=== PATIENT | male | born 1980 | race Caucasian/White ===

== ENCOUNTER → 2016-11-17 | Outpatient (REF) | payer OTHER | LOC: M SMT 10:45 | PROVIDERS: ATTEND Urology | DX: Z30.2 Encounter for sterilization (principal) ==

== ENCOUNTER → 2022-09-19 | Outpatient (CLI) | payer OTHER ==
[~2022-09-19] MED LIST: ATOR1TAB19 PO; OMEP40CA5 PO; PRIL20TA2 PO
== END ==
LOC: M LABSMTC 10:49
PROVIDERS: ATTEND Anesthesiology
DX: Z01.812 Encounter for preprocedural laboratory examination (principal); Z20.822 Contact with and (suspected) exposure to COVID-19

== ENCOUNTER 2022-09-23 09:34 | Day surgery (SDC) | payer OTHER ==
[~2022-09-23] VITALS: Ht 175.3 cm; Wt 85.3 kg
[~2022-09-23 09:34] MED LIST changes: +ceFAZolin SOD 2 GM in IV 1 EA IV ONE
[2022-09-23] MEDS ORDERED: LIDOCAINE 1% SDV 30ML VIAL As Ordered ONE (10:38)
[2022-09-23] MEDS ORDERED: BUPIVACAINE HCL 0.25% 30ML VIAL As Ordered ONE (10:38)
[2022-09-23] MEDS ORDERED: fentaNYL 100 MCG/2 ML INJECTION As Ordered ONE (10:54)
[2022-09-23] MEDS ORDERED: LR 1,000 ML IV SCH ×2 (10:55→15:00)
[2022-09-23] MEDS ORDERED: MIDAZOLAM INJ 2MG/2ML VIAL (J2250 PER 1MG) As Ordered ONE (10:55)
[2022-09-23] MEDS ORDERED: ACETAMINOPHEN 1000MG 100ML IV BAG As Ordered ONE (11:00)
[2022-09-23] MEDS ORDERED: propofoL 200 MG/20 ML VIAL As Ordered ONE ×2 (11:00→11:07)
[2022-09-23] MEDS ORDERED: dexameTHASONE 4 MG/ML 1ML VIAL (J1100 PER 1MG) As Ordered ONE (11:00)
[2022-09-23] MEDS ORDERED: LIDOCAINE 2% INJ 100 MG/5 ML SYRINGE As Ordered ONE (11:02)
[2022-09-23] MEDS ORDERED: ROCURONIUM BROMIDE 50 MG/5 ML VIAL As Ordered ONE ×3 (11:05→13:44)
[2022-09-23] MEDS ORDERED: KETOROLAC 60MG 2ML VIAL As Ordered ONE (11:08)
[2022-09-23] MEDS ORDERED: ONDANSETRON 4MG 2ML VIAL As Ordered ONE (11:08)
[2022-09-23] MEDS ORDERED: METHYLENE BLUE 0.5% (5MG/ML) 10 ML AMP (PROVAYBLUE) As Ordered ONE (11:16)
[2022-09-23] MEDS ORDERED: SUGAMMADEX SODIUM 500 MG/5 ML VIAL (BRIDION) As Ordered ONE (14:48)
[2022-09-23] MEDS ORDERED: fentaNYL 100 MCG/2 ML INJECTION IV PRN (15:00)
[2022-09-23] MEDS ORDERED: HYDROMORPHONE HCL 0.5 MG/ 0.5 ML SYRINGE (J1170 PER 1) IV PRN (15:00)
[2022-09-23] MEDS ORDERED: oxyCODONE 5MG TAB PO PRN (15:00)
[2022-09-23] MEDS ORDERED: CEPH500C PO (15:16)
[2022-09-23] MEDS ORDERED: HYDR-3713 PO (15:16)
[2022-09-23 16:25] VITALS: BP 128/86
== END 2022-09-23 16:55 | disposition home or self-care (01) ==
LOC: M SDC 09:34
PROVIDERS: ATTEND Urology
DX: N46.01 Organic azoospermia (principal); G47.33 Obstructive sleep apnea (adult) (pediatric); K21.9 Gastro-esophageal reflux disease without esophagitis; Z79.899 Other long term (current) drug therapy; Z87.891 Personal history of nicotine dependence
CPT/HCPCS: 55400; 88304; J0690; J1100; J1885; J2250; J2405; J3010

== ENCOUNTER 2023-10-23 12:30 | Emergency (ER) | payer OTHER ==
[~2023-10-23] VITALS: Ht 175.3 cm; Wt 95.5 kg
[~2023-10-23 12:30] MED LIST changes: +CEPH500C PO; +HYDR-3713 PO; -ceFAZolin SOD 2 GM in IV 1 EA IV ONE
[2023-10-23 13:06] LABS: BASO % 0.3 % (0.0-1.0); EOS % 0.1 % (0.0-3.0); HEMATOCRIT 46.6 % (42.0-52.0); HEMOGLOBIN 15.7 g/dl (13.5-17.5); LYMPH # 1.7 10^3/uL (1.5-5.0); LYMPH % 12.3 % (24.0-44.0); MEAN CORPUSCULAR HEMOGLOBIN 28.8 pg (27.0-33.0); MEAN CORPUSCULAR HGB CONC 33.7 g/dl (32.0-36.5); MEAN CORPUSCULAR VOLUME 85.3 fl (80.0-96.0); MONO # 0.9 10^3/uL (0.0-0.8); MONO % 6.3 % (2.0-8.0); NEUTROPHILS # 10.9 10^3/uL (1.5-8.5); NEUTROPHILS % 80.6 % (36.0-66.0); PLATELET COUNT, AUTOMATED 312 10^3/uL (150-450); RED BLOOD COUNT 5.46 10^6/uL (4.30-6.10); WHITE BLOOD COUNT 13.5 10^3/uL (4.0-10.0)
[2023-10-23 13:22] LABS: INR 1.2; PROTHROMBIN TIME 14.8 SECONDS (12.5-14.5)
[2023-10-23 13:23] LABS: PARTIAL THROMBOPLASTIN TIME 26.4 SECONDS (24.8-34.2)
[2023-10-23] MEDS ORDERED: ONDANSETRON 4MG 2ML VIAL IV ONE (13:45)
[2023-10-23 13:57] LABS: ETHYL ALCOHOL (ETHANOL) 0.075 % (0.000-0.010)
[2023-10-23 13:58] LABS: ALBUMIN 4.1 G/DL (3.2-5.2); BILIRUBIN,DIRECT 0.4 MG/DL (<0.4); BILIRUBIN,TOTAL 1.2 MG/DL (0.3-1.2); CK-MB VALUE MASS 21.3 NG/ML (<3.6); TOTAL PROTEIN 6.7 G/DL (5.7-8.2)
[2023-10-23] MEDS: MORPHINE 4 MG/ML 1ML VIAL IV PRN ×2 (14:16→15:26)
[2023-10-23 14:34] LABS: MB/CK RELATIVE INDEX 0.78 (< OR =4)
[2023-10-23 15:17] LABS: RSV AMPLIFICATION NEGATIVE (NEGATIVE)
[2023-10-23] MEDS ORDERED: MORPHINE 4 MG/ML 1ML VIAL IV ONE (18:25)
[2023-10-23 19:13] VITALS: BP 183/96; TEMP 97.8; O2SAT 98
== END 2023-10-23 19:14 | disposition short-term general hospital (02) ==
LOC: EDBD 12:30 → M ED 12:30
DX: S13.0XXA Traumatic rupture of cervical intervertebral disc, initial encounter (principal); S13.4XXA Sprain of ligaments of cervical spine, initial encounter; F10.10 Alcohol abuse, uncomplicated; K21.9 Gastro-esophageal reflux disease without esophagitis; Y04.0XXA Assault by unarmed brawl or fight, initial encounter; Y92.009 Unspecified place in unspecified non-institutional (private) residence as the place of occurrence of the external cause; Y93.9 Activity, unspecified; Z79.83 Long term (current) use of bisphosphonates; Z79.1 Long term (current) use of non-steroidal anti-inflammatories (NSAID)
CPT/HCPCS: 70450; 70486; 71045; 72125; 72141; 80076; 82077; 82150; 82550; 82553; 83690; 84484; 85025; 85610; 85730; 87631; 93041; 94760; 96374; 96375; 96376; 99285; J2405

== ENCOUNTER → 2025-01-10 | Outpatient (CLI) | payer OTHER | LOC: M SOG 07:58 | PROVIDERS: ATTEND Physician Assistant | DX: M79.644 Pain in right finger(s) (principal) ==